=== PATIENT | male | born 1940 | race American Indian/Alaskan Native ===

== ENCOUNTER 2017-08-07 20:45 | Emergency (ER) | payer OTHER, MEDICARE ==
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
[2017-08-08] MEDS ORDERED: ZOFRAN ODT PO ONE (01:23)
[2017-08-08] MEDS ORDERED: NORCO 5/325 PO ONE ×2 (01:23→05:57)
[2017-08-08] MEDS ORDERED: NACL ONE (03:26)
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
[2017-08-08 05:44] LABS: Basophils % (Auto) 0.1 % (0.0-1.8); Eosinophils % (Auto) 1.2 % (0.0-4.3); Hematocrit 36.3 % (35.5-45.6); Hemoglobin 12.1 gm/dl (11.8-15.2); Mean Corpuscular HGB Conc 33 % (32-34); Mean Corpuscular Hemoglobin 32 pg (28-32); Mean Corpuscular Volume 95 fl (84-94); Platelet Count 207 K/mm3 (140-440); Red Blood Count 3.82 M/mm3 (3.65-5.03); White Blood Count 7.9 K/mm3 (4.5-11.0)
[2017-08-08 05:45] LABS: Alanine Aminotransferase 29 units/L (7-56); Albumin 4.3 g/dL (3.9-5); Alkaline Phosphatase 83 units/L (35-129); Anion Gap 18 mmol/L; BUN/Creatinine Ratio 31; Blood Urea Nitrogen 28 mg/dL (9-20); Calcium 9.2 mg/dL (8.4-10.2); Carbon Dioxide 28 mmol/L (22-30); Chloride 97.4 mmol/L (98-107); Creatine Kinase 545 units/L (55-170); Glucose 120 mg/dL (75-100); Potassium 3.9 mmol/L (3.6-5.0); Sodium 139 mmol/L (137-145); Total Protein 6.4 g/dL (6.3-8.2)
[2017-08-08 06:08] LABS: Bilirubin,Direct < 0.2 mg/dL (0-0.2); Bilirubin,Indirect 0.4 mg/dL
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
[2017-08-08 07:45] VITALS: BP 120/73
== END 2017-08-08 07:43 | disposition home or self-care (01) ==
LOC: ED 20:45
DX: S22.42XA Multiple fractures of ribs, left side, initial encounter for closed fracture (principal); V49.49XA Driver injured in collision with other motor vehicles in traffic accident, initial encounter; Y93.89 Activity, other specified; Y92.89 Other specified places as the place of occurrence of the external cause; Y99.8 Other external cause status
CPT/HCPCS: 36415; 70450; 71111; 71275; 72125; 74174; 80048; 80074; 82550; 85025; 99284; Q9967; Q0162

== ENCOUNTER 2021-07-31 08:42 | Outpatient (CLI) | payer MEDICARE ==
[2021-07-31 10:22] LABS: Blood Urea Nitrogen 26 mg/dL (9-20)
--- NOTE | 2021-07-31 12:03 | Cat Scan Report ---
CTA of the abdomen and pelvis with bilateral lower extremity runoff INDICATION / CLINICAL INFORMATION: Severe peripheral vascular disease with bilateral lower external knee claudication TECHNIQUE: Axial CT images were obtained after injection of 100 mL Omnipaque 300 IV contrast using CTA protocol through the abdomen, pelvis with bilateral lower extremity runoff. 3 plane MIP / 3D reconstructions w ere produced. All CT scans at this location are performed using CT dose reduction for ALARA by means of automated exposure control. COMPARISON: None available. FINDINGS: CTA abdomen and pelvis: Severe atherosclerotic disease of the abdominal aorta without aneurysm or dissection. Moderate atherosclerotic disease involving the origins of the celiac and SMA arteries without high-gr sharon stenosis. There is high-grade short segment stenosis involving origin of the right and left renal arteries. The JESSIE is patent. Severe atherosclerotic disease extends into both common iliac arteries and the external iliac arterie s. There is moderate long segment narrowing involving both common iliac arteries with about 50% narro wing. The external iliac arteries also contain a large amount of atherosclerotic plaque but no high-g rade stenosis or occlusion is identified. The lower lungs are grossly clear of acute infiltrate. There is prior cholecystectomy. There is moderate intraextra hepatic biliary dilatation possibly seco ndary to prior cholecystectomy. The main pancreatic duct is dilated at almost 4 mm in diameter. The k idneys are grossly unremarkable. The spleen is mildly heterogeneous. Postoperative changes of the sto mach are present. Large stool burden throughout the colon. The appendix is not well visualized. Urina ry bladder is fluid distended. Penile prosthesis is noted. CTA right lower extremity runoff: Severe atherosclerotic disease extends into the right common femora l artery where there is about 40% narrowing. There is a short segment area 50% stenosis involving the proximal right SFA. A large amount of atherosclerotic plaque is seen narrowing much of the mid and d istal right SFA with a long segment of 70% stenosis involving the distal right SFA. This extends into the right popliteal artery where there is 50-70% stenosis. There is two-vessel runoff below the righ t knee with patency of the posterior tibial and peroneal arteries. The anterior tibial artery is occl uded proximally. CTA left lower extremity runoff: Moderate atherosclerotic calcification of the left common femoral ar smiley. There is about 50% narrowing of the origin of the left SFA. Increasing atherosclerotic plaque i dentified within the mid and distal left SFA with about 50-70% narrowing involving the middle aspect of the left SFA, long segment. There is about 50% narrowing involving the distal SFA and popliteal ar teries. There is three-vessel runoff below the left knee. IMPRESSION: 1. Two-vessel runoff below the right knee and three-vessel runoff below the left knee, as above 2. High-grade stenosis (long segment) involving the mid and distal aspect of the right SFA measuring about 70% stenosis. 3. Long segment of atherosclerotic narrowing of the mid and distal left SFA measuring between 50 and 70% stenosis. 4. Severe atherosclerotic calcification of the abdominal aorta with high-grade stenosis involving the origins of the right and left main renal arteries. Signer Name: Keven Crawford MD Signed: 07/31/2021 11:59 AM Workstation Name: [id number]
== END 2021-07-31 08:43 | disposition home or self-care (01) ==
LOC: CT 08:42
PROVIDERS: ATTEND Internal Medicine
DX: I70.213 Atherosclerosis of native arteries of extremities with intermittent claudication, bilateral legs (principal); I42.0 Dilated cardiomyopathy; I10 Essential (primary) hypertension; E78.2 Mixed hyperlipidemia
CPT/HCPCS: 36415; 75635; 82565; 84520; Q9967